=== PATIENT | female | born 1965 | race Caucasian/White ===

== ENCOUNTER 2016-10-23 17:22 | Inpatient (IN) | payer MEDICAID, OTHER ==
[~2016-10-23] VITALS: Ht 160 cm; Wt 45.5 kg
[2016-10-23] MEDS ORDERED: ZYRT10TA2 PO (17:30)
[2016-10-23] MEDS ORDERED: VARE1TA PO (17:31)
[2016-10-23] MEDS ORDERED: methylPREDNISolone INJ 125 MG/2 ML VIAL (J2930) IV ONE (17:45)
[2016-10-23 17:50] LABS: BASO % 0.3 % (0.0-1.0); EOS # 0.3 K/mm3 (0.0-0.50); EOS % 5.1 % (0.0-3.0); LARGE UNSTAINED CELL # 0.2 K/mm3 (0.0-0.4); LARGE UNSTAINED CELL % 2.3 % (0.0-4.0); LYMPH # 1.7 K/mm3 (1.5-4.5); LYMPH % 23.3 % (24.0-44.0); MEAN CORPUSCULAR HEMOGLOBIN 30.6 pg (27.0-33.0); MEAN CORPUSCULAR HGB CONC 34.2 g/dl (32.0-36.5); MEAN CORPUSCULAR VOLUME 89.6 fl (80.0-96.0); MONO # 0.3 K/mm3 (0.0-0.8); MONO % 4.7 % (0.0-5.0); NEUTROPHILS # 4.2 K/mm3 (1.8-7.7); NEUTROPHILS % 64.4 % (36.0-66.0); PLATELET COUNT, AUTOMATED 268 k/mm3 (150-450); RED CELL DISTRIBUTION WIDTH 12.6 % (11.5-14.5); WHITE BLOOD COUNT 6.6 K/mm3 (4.0-10.0)
[2016-10-23 18:10] LABS: ANION GAP 5 MEQ/L (8-16); BLOOD UREA NITROGEN 14 MG/DL (7-18); CALCIUM LEVEL 8.9 MG/DL (8.5-10.1); CARBON DIOXIDE LEVEL 30 MEQ/L (21-32); CHLORIDE LEVEL 105 MEQ/L (98-107); CREATININE FOR GFR 0.62 MG/DL (0.55-1.02); GLOMERULAR FILTRATION RATE > 60.0 (>51); GLUCOSE, FASTING 104 MG/DL (70-105); POTASSIUM SERUM 4.1 MEQ/L (3.5-5.1); SODIUM LEVEL 140 MEQ/L (136-145)
[2016-10-23] MEDS: IPRATROPIUM 0.5MG/ALBUTEROL 2.5MG INH SOL UD 3ML (DUONEB)(J7620) NEB PRN ×3 (18:19→18:51)
[2016-10-23 18:20] LABS: ALBUMIN 3.5 GM/DL (3.2-5.2); ALKALINE PHOSPHATASE 83 U/L (45-117); ALT/SGPT 13 U/L (12-78); AST/SGOT 11 U/L (15-37); BILIRUBIN,DIRECT < 0.1 MG/DL (0.0-0.2); BILIRUBIN,TOTAL 0.1 MG/DL (0.2-1.0); TOTAL PROTEIN 7.4 GM/DL (6.4-8.2)
[2016-10-23] MEDS ORDERED: PRED20TA PO (18:35)
[2016-10-23] MEDS ORDERED: FULLMIS XX (18:36)
[2016-10-23] MEDS ORDERED: IPRASOL4 IN (18:37)
[2016-10-23] MEDS ORDERED: ALBU17IN INH (18:40)
[2016-10-23 19:23] VITALS: O2SAT 86
--- NOTE | 2016-10-23 19:36 | REP ---
CHEST, TWO VIEWS: Two views of the chest are performed and compared to prior study of 05/06/2006. There is hyperinflation with bibasilar interstitial fibrosis. There is no acute infiltrate. The heart is normal in size. There is mild calcification of the thoracic aorta. The mediastinal silhouette is unchanged. IMPRESSION: Chronic changes are stable without evidence of acute infiltrate. Signed by Nigel Jorge MD 10/23/2016 08:16 P
[2016-10-23 19:44] LABS: ABG BASE EXCESS -3.7 (-2.0-2.0); ABG HCO3 21.6 MEQ/L (22.0-26.0); ABG PARTIAL PRESSURE CO2 39.9 mmHg (35.0-45.0); ABG PARTIAL PRESSURE O2 66.9 mmHg (75.0-100.0); ABG STANDARD HCO3 21.3 MEQ/L (22.0-26.0); ABG TOTAL CO2 22.8 MEQ/L (22.0-29.0); ABG pH (ARTERIAL) 7.351 UNITS (7.350-7.450)
[2016-10-23] MEDS ORDERED: LEVALBUTEROL 1.25 MG/0.5 ML CONCENTRATE NEB NEB PRN (20:15)
[2016-10-23] MEDS ORDERED: AMIT25TA PO (20:33)
[2016-10-23] MEDS ORDERED: zolPIDEM TARTRATE 5 MG TAB PO PRN (21:30)
[2016-10-23] MEDS ORDERED: NICOTINE POLACRILEX 2 MG GUM PO PRN (21:30)
--- NOTE | 2016-10-23 21:54 | HPE ---
DATE OF ADMISSION: 10/23/2016 PRIMARY CARE PHYSICIAN: Rashaad Mcfarland [place] HOSPITALIST ATTENDING: DR ANÍBAL HUMPHREY CHIEF COMPLAINT: Shortness of breath. HISTORY OF THE PRESENT ILLNESS: A 51-year-old female with no past medical history aside from prior history of over 30 years of smoking, allergic rhinitis, on chronic Zyrtec, presents to the emergency room with a few day history of worsening shortness of breath and cough with clear sputum. No fevers or chills. No abdominal pain, nausea, vomiting, upper or lower extremity weakness, edema, changes in appetite, dysuria, urgency, frequency, palpitations, paroxysmal nocturnal dyspnea (PND), orthopnea, lightheadedness, polyphagia, polyuria. The patient had recently quit smoking and has been placed on Chantix with worsening shortness of breath, initially thought to be a side effect of Chantix, now presents to the emergency room for evaluation. Chest x-ray was unremarkable. No acute infiltrate, edema or effusion. EKG unremarkable, shows sinus rhythm, ventricular rate [address]-T wave changes. CBC, metabolic panel are unremarkable. Troponin is pending. Hospitalist service was called for admission for chronic obstructive pulmonary disease (COPD), new onset. She was found to be 81% room air saturation in ER. PAST MEDICAL HISTORY: Allergic rhinitis. PAST SURGICAL HISTORY: Tubal ligation. Exploratory laparotomy secondary to adhesions. ALLERGIES: PROPOXYPHENE. HOME MEDICATIONS: - Zyrtec - Chantix SOCIAL HISTORY: She has smoked for over 30 years, a pack a day. Occasional wine per week. Currently works at a [employer] shop. FAMILY HISTORY: Father alive, 83, unknown medical issues. Mother with small cell lung cancer, previous smoker. REVIEW OF SYSTEMS: Twelve point system negative aside from positive findings in history of the present illness. PHYSICAL EXAMINATION: Vital Signs: Blood pressure 162/83, pulse 110, sinus rhythm, respiratory rate 22 , temperature 97.9, 92% on 2 liters nasal cannula. General: The patient is awake, alert, oriented times three, able to speak in full sentences. Pupils equally round and reactive to light and accommodation. Extraocular muscles are intact. Normocephalic, atraumatic. Anicteric sclerae. No jaundice. No use of respiratory accessory muscles. Able to complete full sentences. No jugular venous distention (JVD), cervical lymphadenopathy or thyromegaly. Lungs are diminished with prolonged expiration, bilateral wheezing. Heart: S1, S2, sinus tachycardia. No murmurs, rubs or gallops. Abdomen is soft, nontender, nondistended. Positive bowel sounds. Extremities: No cyanosis, clubbing or pitting edema. LABORATORY DATA: White count 6.6, hemoglobin 14.9, hematocrit 43.4, platelet count 268. Sodium 140, potassium 4.1, chloride 105, bicarbonate 30, BUN 14, creatinine 0.62, glucose 104, total bilirubin 0.1, direct bilirubin less than 0.1, AST 11, ALT 13, alkaline phosphatase 83, total protein 7.4, albumin 3.5, TSH 4.990. Chest x-ray: No acute infiltrate, consolidation, effusion. Chronic changes with bibasilar interstitial fibrosis. Mild calcification of the thoracic aorta. ASSESSMENT AND PLAN: A 51-year-old female with a history of allergic rhinitis, previous smoking over 30 pack-years, quit smoking with Chantix, now with worsening shortness of breath, found to have audible wheezing, on exam admitted for chronic obstructive pulmonary disease (COPD). IMPRESSION: 1. Acute chronic obstructive pulmonary disease, new onset. The patient will need pulmonary function testing as an outpatient once acute episode is resolved. She will be admitted to medical-surgical floor, IV Solu-Medrol, doxycycline 100 mg twice a day, nebulizer treatments routinely and as needed, inhaled steroids with budesonide. Acute hypoxia with 81% room air in ER,m supplemental o2 88-92% titration 2. History of insomnia, as needed Ambien. 3. Gastrointestinal (GI) prophylaxis with Protonix. 4. Tobacco use with tobacco cessation, nicotine patch. 5. Deep vein thrombosis (DVT) prophylaxis with compression stockings, Lovenox injections. HOSPITALIST ATTENDING: The patient will be assigned to Dr. Aníbal Humphrey at 7:00 a.m. on 10/24/2016. LEWIS
[2016-10-23 22:00] VITALS: BP 151/71
[2016-10-23 22:35] LABS: EOSINOPHILS 8 % (0-5)
[2016-10-23] MEDS: DOXYCYCLINE HYCLATE 100 MG TAB PO SCH (22:45)
[2016-10-24] MEDS: LEVALBUTEROL 1.25 MG/0.5 ML CONCENTRATE NEB NEB SCH ×4 (01:46→19:49)
[2016-10-24] MEDS: IPRATROPIUM 0.02% SOLN 0.5MG/2.5 ML NEB NEB SCH ×4 (01:46→19:49)
[2016-10-24] MEDS: methylPREDNISolone INJ 125 MG/2 ML VIAL (J2930) IV SCH ×3 (02:12→17:36)
[2016-10-24 04:51] VITALS: BP 140/84
[2016-10-24 07:51] LABS: ANION GAP 9 MEQ/L (8-16); BLOOD UREA NITROGEN 15 MG/DL (7-18); CALCIUM LEVEL 9.2 MG/DL (8.5-10.1); CARBON DIOXIDE LEVEL 25 MEQ/L (21-32); CHLORIDE LEVEL 106 MEQ/L (98-107); CREATININE FOR GFR 0.84 MG/DL (0.55-1.02); GLOMERULAR FILTRATION RATE > 60.0 (>51); GLUCOSE, FASTING 151 MG/DL (70-105); POTASSIUM SERUM 4.3 MEQ/L (3.5-5.1); SODIUM LEVEL 140 MEQ/L (136-145)
[2016-10-24] MEDS: BUDESONIDE 180MCG INHALER (PULMICORT FLEXHALER) INH SCH ×2 (07:53→20:17)
[2016-10-24] MEDS: TIOTROPIUM INHALER/CAPSULE (SPIRIVA) INH SCH (07:53)
[2016-10-24 07:55] LABS: BASO % 0.5 % (0.0-1.0); EOS % 0.3 % (0.0-3.0); LARGE UNSTAINED CELL # 0.1 K/mm3 (0.0-0.4); LARGE UNSTAINED CELL % 0.7 % (0.0-4.0); LYMPH # 1.1 K/mm3 (1.5-4.5); LYMPH % 11.6 % (24.0-44.0); MEAN CORPUSCULAR HEMOGLOBIN 30.5 pg (27.0-33.0); MEAN CORPUSCULAR HGB CONC 33.4 g/dl (32.0-36.5); MEAN CORPUSCULAR VOLUME 91.3 fl (80.0-96.0); MONO # 0.2 K/mm3 (0.0-0.8); MONO % 2.6 % (0.0-5.0); NEUTROPHILS # 7.7 K/mm3 (1.8-7.7); NEUTROPHILS % 84.3 % (36.0-66.0); PLATELET COUNT, AUTOMATED 268 k/mm3 (150-450); RED CELL DISTRIBUTION WIDTH 12.5 % (11.5-14.5); WHITE BLOOD COUNT 9.1 K/mm3 (4.0-10.0)
[2016-10-24 08:00] LABS: THYROXINE (T4) 8.6 UG/DL (4.5-12.0)
[2016-10-24] MEDS: DOXYCYCLINE HYCLATE 100 MG TAB PO SCH ×2 (09:00→20:07)
[2016-10-24] MEDS: PANTOPRAZOLE 40MG TAB (PROTONIX) PO SCH (09:01)
[2016-10-24] MEDS: CETIRIZINE (ZyrTEC) 10 MG TAB PO SCH (09:01)
[2016-10-24] MEDS: ENOXAPARIN 40 MG/0.4 ML SYRINGE (J1650) SC SCH (09:01)
[2016-10-24] MEDS: NICOTINE 14 MG/24 HR TRANSDERMAL TD SCH (09:02)
[2016-10-24 14:00] VITALS: BP 152/75
--- NOTE | 2016-10-24 15:21 | IPNPDOC ---
Text Note Date of Service The patient was seen on 10/24/16. NOTE Subjective: Patient states that her dyspnea is much improved. Denies chest pain/ palpitations. Objective: Vitals: (see below) General: No acute distress, laying comfortably in bed. HEENT: Moist mucous membranes. Neck: No JVD or lymphadenopathy Cardiac: Tachycardic, No murmurs Pulm: Prolonged expiratory phase. Mild expiratory wheezing. No rhonchi or crackles. No use of accessory muscles. Abd: NT/ND + BS Ext: No edema or cyanosis Labs (see below) Images: CXR 10/23/16 IMPRESSION:Chronic changes are stable without evidence of acute infiltrate. Assessment/Plan 1. Acute COPD exacerbation- new onset. Patient does have significant tobacco abuse history 1 pack per day 30 years however quit 8 days ago and started to try Chantix. Continue nebs, steroids, antibiotics. Blood cultures pending. We' ll need outpatient PFTs. 2. History of tobacco abuse- continue to encourage cessation. 3. Insomnia- ambulate as needed DVT prophy: Enoxaparin VS,Fishbone, I+O VS, Fishbone, I+O Laboratory Tests 10/23/16 17:37 Red Blood Count 4.85, Mean Corpuscular Volume 89.6, Mean Corpuscular Hemoglobin 30.6, Mean Corpuscular Hemoglobin Concent 34.2, Red Cell Distribution Width 12.6 , Neutrophils (%) (Auto) 64.4, Lymphocytes (%) (Auto) 23.3 L, Monocytes (%) ( Auto) 4.7, Eosinophils (%) (Auto) 5.1 H, Basophils (%) (Auto) 0.3, Neutrophils # (Auto) 4.2, Lymphocytes # (Auto) 1.7, Monocytes # (Auto) 0.3, Eosinophils # ( Auto) 0.3, Basophils # (Auto) 0.0, Calcium Level 8.9, Total Creatine Kinase 59 10/24/16 07:18 Red Blood Count 4.99, Mean Corpuscular Volume 91.3, Mean Corpuscular Hemoglobin 30.5, Mean Corpuscular Hemoglobin Concent 33.4, Red Cell Distribution Width 12.5 , Neutrophils (%) (Auto) 84.3 H, Lymphocytes (%) (Auto) 11.6 L, Monocytes (%) ( Auto) 2.6, Eosinophils (%) (Auto) 0.3, Basophils (%) (Auto) 0.5, Neutrophils # ( Auto) 7.7, Lymphocytes # (Auto) 1.1 L, Monocytes # (Auto) 0.2, Eosinophils # ( Auto) 0.0, Basophils # (Auto) 0.0, Calcium Level 9.2 Vital Signs Date Time Temp Pulse Resp B/P (MAP) Pulse Ox O2 Delivery O2 Flow Rate FiO2 10/24/16 14:00 100.1 118 20 152/75 (100) 93 10/24/16 04:51 Nasal Cannula 2.0 ANÍBAL HUMPHREY MD Oct 24, 2016 15:21
[2016-10-24] MEDS ORDERED: ACETAMINOPHEN TAB 650MG DOSE (2X325MG) PO PRN (18:00)
--- NOTE | 2016-10-24 20:17 | ECGEPIP ---
Stationary ECG Study [facility] - ED Test Date: 2016-10-23 Pat Name: BELA BISHOP Department: Room: - Gender: F Addresser: IJEOMA : 1965 Requested By: Estelita Gold Order Number: [id number] Reading MD: Pita Abarca Measurements Intervals [place] Rate: 95 P: 79 ME: 124 QRS: 80 QRSD: 100 T: 69 QT: 341 QTc: 430 Interpretive Statements SINUS RHYTHM NO OLD ECG FOR COMPARISON Electronically Signed On 10-24-2016 20:17:03 EDT by Pita Abarca
[2016-10-24 22:00] VITALS: BP 143/72
--- NOTE | 2016-10-24 22:54 | ECGEPIP ---
Stationary ECG Study [facility] Test Date: 2016-10-24 Pat Name: BELA BISHOP Department: Room: [place] [address] Gender: F Cytogenetic Technician: KELLY : 1965 Requested By: ANÍBAL HUMPHREY Order Number: [id number] Reading MD: Juvenal Nava Measurements Intervals [place] Rate: 116 P: 88 UT: 134 QRS: 90 QRSD: 84 T: 120 QT: 303 QTc: 421 Interpretive Statements SINUS TACHYCARDIA NONSPECIFIC ST & T-WAVE ABNORMALITY ABNORMAL RHYTHM ECG LAST TRACING ON 10/23/2016 AT 18:10:13, PATIENT IS NOW TACHYCARDIC Electronically Signed On 10-24-2016 22:54:22 EDT by Juvenal Nava
[2016-10-25] MEDS: LEVALBUTEROL 1.25 MG/0.5 ML CONCENTRATE NEB NEB SCH ×4 (01:21→19:25)
[2016-10-25] MEDS: IPRATROPIUM 0.02% SOLN 0.5MG/2.5 ML NEB NEB SCH ×4 (01:22→19:25)
[2016-10-25] MEDS: methylPREDNISolone INJ 125 MG/2 ML VIAL (J2930) IV SCH ×2 (01:27→10:27)
[2016-10-25 06:00] VITALS: BP 132/75
[2016-10-25 07:43] LABS: EOS % 0.2 % (0.0-3.0); LARGE UNSTAINED CELL # 0.1 K/mm3 (0.0-0.4); LARGE UNSTAINED CELL % 0.4 % (0.0-4.0); LYMPH # 1.2 K/mm3 (1.5-4.5); LYMPH % 5.3 % (24.0-44.0); MEAN CORPUSCULAR HEMOGLOBIN 30.2 pg (27.0-33.0); MEAN CORPUSCULAR HGB CONC 32.6 g/dl (32.0-36.5); MEAN CORPUSCULAR VOLUME 92.4 fl (80.0-96.0); MONO # 0.7 K/mm3 (0.0-0.8); MONO % 3.3 % (0.0-5.0); NEUTROPHILS % 90.7 % (36.0-66.0); PLATELET COUNT, AUTOMATED 292 k/mm3 (150-450); WHITE BLOOD COUNT 20.9 K/mm3 (4.0-10.0)
[2016-10-25] MEDS: TIOTROPIUM INHALER/CAPSULE (SPIRIVA) INH SCH (08:00)
[2016-10-25 08:03] LABS: ANION GAP 7 MEQ/L (8-16); BLOOD UREA NITROGEN 19 MG/DL (7-18); CALCIUM LEVEL 8.9 MG/DL (8.5-10.1); CARBON DIOXIDE LEVEL 29 MEQ/L (21-32); CHLORIDE LEVEL 107 MEQ/L (98-107); CREATININE FOR GFR 0.72 MG/DL (0.55-1.02); GLOMERULAR FILTRATION RATE > 60.0 (>51); GLUCOSE, FASTING 129 MG/DL (70-105); POTASSIUM SERUM 4.4 MEQ/L (3.5-5.1); SODIUM LEVEL 143 MEQ/L (136-145)
[2016-10-25] MEDS: NICOTINE 14 MG/24 HR TRANSDERMAL TD SCH (09:00)
[2016-10-25] MEDS: BUDESONIDE 180MCG INHALER (PULMICORT FLEXHALER) INH SCH ×2 (09:08→19:10)
[2016-10-25] MEDS: CETIRIZINE (ZyrTEC) 10 MG TAB PO SCH (10:27)
[2016-10-25] MEDS: ENOXAPARIN 40 MG/0.4 ML SYRINGE (J1650) SC SCH (10:27)
[2016-10-25] MEDS: PANTOPRAZOLE 40MG TAB (PROTONIX) PO SCH (10:27)
[2016-10-25] MEDS: DOXYCYCLINE HYCLATE 100 MG TAB PO SCH (10:27)
[2016-10-25 13:03] LABS: MEAN CORPUSCULAR HEMOGLOBIN 30.4 pg (27.0-33.0); MEAN CORPUSCULAR HGB CONC 33.4 g/dl (32.0-36.5); RED CELL DISTRIBUTION WIDTH 13.2 % (11.5-14.5); WHITE BLOOD COUNT 24.3 K/mm3 (4.0-10.0)
[2016-10-25 14:00] VITALS: BP 123/74
--- NOTE | 2016-10-25 14:27 | IPNPDOC ---
Text Note Date of Service The patient was seen on 10/25/16. NOTE Subjective: Dyspnea continues to improve. Denies chest pain/palpitations. Objective: Vitals: (see below) General: No acute distress, laying comfortably in bed. HEENT: Moist mucous membranes. Neck: No JVD or lymphadenopathy Cardiac: Tachycardic, No murmurs Pulm: Mild expiratory wheezing. No rhonchi or crackles. No use of accessory muscles. Abd: NT/ND + BS Ext: No edema or cyanosis Labs (see below) Images: CXR 10/23/16 IMPRESSION:Chronic changes are stable without evidence of acute infiltrate. Assessment/Plan 1. Acute COPD exacerbation- new onset. Patient does have significant tobacco abuse history 1 pack per day 30 years however quit 8 days ago and started to try Chantix. Continue nebs, steroids, antibiotics. Blood cultures pending. We' ll need outpatient PFTs. 2. Leukocytosis - Likely reactive and secondary to steroids. Afebrile. CRP nl. Will continue to monitor. 3. History of tobacco abuse- continue to encourage cessation. 4. Insomnia- ambulate as needed DVT prophy: Enoxaparin VS,Fishbone, I+O VS, Fishbone, I+O Laboratory Tests 10/25/16 07:24 Red Blood Count 4.53, Mean Corpuscular Volume 92.4, Mean Corpuscular Hemoglobin 30.2, Mean Corpuscular Hemoglobin Concent 32.6, Red Cell Distribution Width 13.0 , Neutrophils (%) (Auto) 90.7 H, Lymphocytes (%) (Auto) 5.3 L, Monocytes (%) ( Auto) 3.3, Eosinophils (%) (Auto) 0.2, Basophils (%) (Auto) 0.0, Neutrophils # ( Auto) 19.0 H, Lymphocytes # (Auto) 1.2 L, Monocytes # (Auto) 0.7, Eosinophils # (Auto) 0.0, Basophils # (Auto) 0.0, Calcium Level 8.9 10/25/16 12:41 Red Blood Count 4.60, Mean Corpuscular Volume 91.0, Mean Corpuscular Hemoglobin 30.4, Mean Corpuscular Hemoglobin Concent 33.4, Red Cell Distribution Width 13.2 Vital Signs Date Time Temp Pulse Resp B/P (MAP) Pulse Ox O2 Delivery O2 Flow Rate FiO2 10/25/16 12:20 Nasal Cannula 2.0 10/25/16 06:00 98.1 99 18 132/75 (48) 92 I&O- Last 24 Hours up to 6 AM 10/25/16 05:59 Intake Total 600 ml Balance 600 ml ANÍBAL HUMPHREY MD Oct 25, 2016 14:27
[2016-10-25] MEDS ORDERED: LevoFLOXacin IV 500 MG in APPROPRIATE DILUENT 1 EA IV SCH (15:00)
[2016-10-25 16:45] VITALS: BP 123/74
[2016-10-25 21:49] VITALS: BP 118/73
[2016-10-26] MEDS: LEVALBUTEROL 1.25 MG/0.5 ML CONCENTRATE NEB NEB SCH ×3 (02:00→14:00)
[2016-10-26] MEDS: IPRATROPIUM 0.02% SOLN 0.5MG/2.5 ML NEB NEB SCH ×3 (02:00→14:00)
[2016-10-26 06:00] VITALS: BP 125/78
[2016-10-26] MEDS: TIOTROPIUM INHALER/CAPSULE (SPIRIVA) INH SCH (07:16)
[2016-10-26] MEDS: BUDESONIDE 180MCG INHALER (PULMICORT FLEXHALER) INH SCH (07:16)
[2016-10-26 07:20] LABS: BASO % 0.2 % (0.0-1.0); EOS # 0.1 K/mm3 (0.0-0.50); EOS % 0.5 % (0.0-3.0); LARGE UNSTAINED CELL # 0.2 K/mm3 (0.0-0.4); LARGE UNSTAINED CELL % 1.7 % (0.0-4.0); LYMPH # 2.4 K/mm3 (1.5-4.5); LYMPH % 19.6 % (24.0-44.0); MEAN CORPUSCULAR HEMOGLOBIN 29.5 pg (27.0-33.0); MEAN CORPUSCULAR HGB CONC 32.1 g/dl (32.0-36.5); MEAN CORPUSCULAR VOLUME 91.8 fl (80.0-96.0); MONO # 0.4 K/mm3 (0.0-0.8); MONO % 3.7 % (0.0-5.0); NEUTROPHILS # 8.4 K/mm3 (1.8-7.7); NEUTROPHILS % 74.3 % (36.0-66.0); PLATELET COUNT, AUTOMATED 254 k/mm3 (150-450); WHITE BLOOD COUNT 11.4 K/mm3 (4.0-10.0)
[2016-10-26 07:31] LABS: ANION GAP 7 MEQ/L (8-16); BLOOD UREA NITROGEN 21 MG/DL (7-18); CALCIUM LEVEL 8.4 MG/DL (8.5-10.1); CARBON DIOXIDE LEVEL 30 MEQ/L (21-32); CHLORIDE LEVEL 108 MEQ/L (98-107); CREATININE FOR GFR 0.88 MG/DL (0.55-1.02); GLOMERULAR FILTRATION RATE > 60.0 (>51); GLUCOSE, FASTING 89 MG/DL (70-105); POTASSIUM SERUM 4.2 MEQ/L (3.5-5.1); SODIUM LEVEL 145 MEQ/L (136-145)
[2016-10-26] MEDS: NICOTINE 14 MG/24 HR TRANSDERMAL TD SCH (09:00)
[2016-10-26] MEDS ORDERED: predniSONE 20 MG TAB PO SCH (09:00)
[2016-10-26] MEDS: PANTOPRAZOLE 40MG TAB (PROTONIX) PO SCH (10:16)
[2016-10-26] MEDS: CETIRIZINE (ZyrTEC) 10 MG TAB PO SCH (10:17)
[2016-10-26] MEDS: ENOXAPARIN 40 MG/0.4 ML SYRINGE (J1650) SC SCH (10:17)
[2016-10-26] MEDS ORDERED: TIOT18INH INH (12:52)
[2016-10-26] MEDS ORDERED: NICO14PA TD (12:52)
[2016-10-26] MEDS ORDERED: PRED10TA2 PO (12:52)
[2016-10-26] MEDS ORDERED: BUDE180INH INH (12:52)
[2016-10-26] MEDS ORDERED: LEVA1TAB2 PO (12:52)
--- NOTE | 2016-10-26 17:43 | DS.PDOC ---
Discharge Summary General Date of Admission Oct 23, 2016 at 20:07 Date of Discharge 10/26/16 Attending Physician: ANÍBAL HUMPHREY MD Discharge Summary PROCEDURES PERFORMED DURING STAY: None. ADMITTING/DISCHARGE DIAGNOSES: 1. Acute COPD exacerbation 2. Leukocytosis 3. History of tobacco abuse 4. Insomnia COMPLICATIONS/CHIEF COMPLAINT: SOB HISTORY OF PRESENT ILLNESS/HOSPITAL COURSE: This is a 51-year-old female with a past medical history of tobacco abuse who recently quit smoking 1-2 weeks ago, and has been diagnosed with COPD who presents with shortness of breath and cough. Patient was admitted for COPD exacerbation was treated with nebulizers, steroids , and antibiotics. Patient significantly improved. She initially required 2 L of oxygen however now she is on room air. I have discussed the patient's labs, imaging, and planned with the patient extensively. She will need to follow-up with her primary care physician in one week and have a referral to pulmonology for formal diagnosis of COPD with PFTs. Patient is return to the ED if symptoms worsen. DISCHARGE MEDICATIONS: Please see below. ALLERGIES: Please see below. PHYSICAL EXAMINATION ON DISCHARGE: Vitals: (see below) General: No acute distress, laying comfortably in bed. HEENT: Moist mucous membranes. Neck: No JVD or lymphadenopathy Cardiac: Tachycardic, No murmurs Pulm: No wheezing. No rhonchi or crackles. No use of accessory muscles. Abd: NT/ND + BS Ext: No edema or cyanosis LABORATORY DATA: Please see below. IMAGING: CXR 10/23/16 IMPRESSION:Chronic changes are stable without evidence of acute infiltrate. PROGNOSIS: Guarded ACTIVITY: As tolerated. DIET: COPD diet DISCHARGE PLAN/DISPOSITION: DISCHARGE INSTRUCTIONS: 1. Follow-up with PCP in 1-2 weeks. Return to ED if symptoms worsen DISCHARGE CONDITION: Stable. TIME SPENT ON DISCHARGE: Greater than 30 minutes. Vital Signs/I&Os Vital Signs Date Time Temp Pulse Resp B/P (MAP) Pulse Ox O2 Delivery O2 Flow Rate FiO2 10/26/16 06:00 98.1 97 18 125/78 (94) 96 Room Air 10/25/16 16:45 2.0 I&O- Last 24 Hours up to 6 AM 10/26/16 06:00 Intake Total 1200 ml Output Total 700 ml Balance 500 ml Laboratory Data Labs 24H Laboratory Tests 2 10/26/16 06:57: White Blood Count 11.4H, Red Blood Count 4.38, Hemoglobin 12.9, Hematocrit 40.3 , Mean Corpuscular Volume 91.8, Mean Corpuscular Hemoglobin 29.5, Mean Corpuscular Hemoglobin Concent 32.1, Red Cell Distribution Width 13.0, Platelet Count 254, Neutrophils (%) (Auto) 74.3H, Lymphocytes (%) (Auto) 19.6L, Monocytes (%) (Auto) 3.7, Eosinophils (%) (Auto) 0.5, Basophils (%) (Auto) 0.2, Neutrophils # (Auto) 8.4H, Lymphocytes # (Auto) 2.4, Monocytes # (Auto) 0.4, Eosinophils # (Auto) 0.1, Basophils # (Auto) 0.0, Large Unclassified Cells % 1.7 , Large Unclassified Cells # 0.2, Anion Gap 7L, Glomerular Filtration Rate > 60.0, Blood Urea Nitrogen 21H, Creatinine 0.88, Sodium Level 145, Potassium Level 4.2, Chloride Level 108H, Carbon Dioxide Level 30, Calcium Level 8.4L CBC/BMP Laboratory Tests 10/26/16 06:57 Red Blood Count 4.38, Mean Corpuscular Volume 91.8, Mean Corpuscular Hemoglobin 29.5, Mean Corpuscular Hemoglobin Concent 32.1, Red Cell Distribution Width 13.0 , Neutrophils (%) (Auto) 74.3 H, Lymphocytes (%) (Auto) 19.6 L, Monocytes (%) ( Auto) 3.7, Eosinophils (%) (Auto) 0.5, Basophils (%) (Auto) 0.2, Neutrophils # ( Auto) 8.4 H, Lymphocytes # (Auto) 2.4, Monocytes # (Auto) 0.4, Eosinophils # ( Auto) 0.1, Basophils # (Auto) 0.0, Calcium Level 8.4 L Microbiology Microbiology 10/24/16 Blood Culture - Preliminary, Resulted No growth after 24 hours . All specim... 10/24/16 Blood Culture - Preliminary, Resulted No growth after 24 hours . All specim... Discharge Medications Scheduled Budesonide (Pulmicort Flexhaler) 120 Puff/Inhaler Aerp, 2 PUFF INH BID Cetirizine HCl (Zyrtec Allergy) 10 Mg Tab, 10 MG PO QHS, (Reported) Levofloxacin Hemihydrate (Levaquin) 500 Mg Tab, 500 MG PO DAILY Nicotine (Nicotine Transdermal Syst) 14 Mg/24 Hr Dis, 1 PATCH TD DAILY Prednisone (Prednisone) 10 Mg Tab, 10 MG PO TAPER Take 4 tabs daily x 3 days, then 3 tabs daily x 3 days, then 2 tabs daily x 3 days, then 1 tab daily x 3 days and stop Tiotropium [place] Monohydrate (Spiriva Handihaler) 5 Inhalation/Inhaler Powd, 1 INHALATION INH DAILY@08 Varenicline (Chantix) 1 Mg Tab, 1 MG PO BID, (Reported) Scheduled PRN Amitriptyline HCl (Amitriptyline HCl) 25 Mg Tab, 12.5 MG PO QHS PRN for SLEEP, ( Reported) Allergies Coded Allergies: Propoxyphene (Unverified Allergy, Intermediate, SEVERE ITCHING, 06/22/12) ANÍBAL HUMPHREY MD Oct 26, 2016 17:43
--- NOTE | 2016-10-26 19:27 | ECGEPIP ---
Stationary ECG Study [facility] Test Date: 2016-10-26 Pat Name: BELA BISHOP Department: Room: [place] [address] Gender: F Tank Charger: : 1965 Requested By: ANÍBAL HUMPHREY Order Number: [id number] Reading MD: Juvenal Nava Measurements Intervals [place] Rate: 97 P: 85 TN: 109 QRS: 82 QRSD: 100 T: 53 QT: 331 QTc: 422 Interpretive Statements SINUS RHYTHM WITH SHORT TN INTERVAL MINIMAL ST DEPRESSION LAST TRACING ON 10/24/2016 AT 8:23:35, HEART RATE IS NOW SLOWER AND TN INTERVAL IS SHORTER Electronically Signed On 10-26-2016 19:26:50 EDT by Juvenal Nava
== END 2016-10-26 14:30 | disposition home or self-care (01) | DRG 140 ==
LOC: M ED 17:22 → EDBD 17:22 → M ED INP 20:07 → M MS4PR 22:00
PROVIDERS: ADMIT General Practice; ATTEND Internal Medicine
DX: J44.1 Chronic obstructive pulmonary disease with (acute) exacerbation (principal); D72.829 Elevated white blood cell count, unspecified; G47.00 Insomnia, unspecified; Z79.899 Other long term (current) drug therapy; Z88.8 Allergy status to other drugs, medicaments and biological substances; J30.9 Allergic rhinitis, unspecified